=== PATIENT | male | born 1990 | race Native Hawaiian/Other Pacific Islander ===

== ENCOUNTER → 2023-01-23 08:07 | Outpatient (CLI) | payer OTHER, SELFPAY ==
--- NOTE | 2023-01-23 | DI.ECHO.S_ITS ---
[place] +---------+ [facility] +---------+ : : [address] : [address] : : : : [id number] : : : : Phone: [phone]---------+ Echocardiogram Report + + :Name: WINDY HDEZ Study Date: 01/23/2023 Height: 69 in : :[facility] ReadingLocation: Weight: 215 lb : : Gender: Male BSA: 2.1 m2 : :: 1990 Age: 32 yrs BP: 145/103 mmHg: :Reason For Study: PALPITATIONS : :Ordering Physician: ARNEL, : :SANJUANITA Performed By: Susan Yeboah : :Referring: SANJUANITA SEALS : + + Interpretation Summary The ejection fraction is estimated to be 55-60%. Diastolic parameters suggest probable normal left ventricular diastolic function and normal filling pressures. The right ventricle is normal in size and function. No significant valvular abnormalities. Pulmonary artery pressures cannot be estimated because of the lack of a measurable TR jet velocity but the IVC suggests a CVP of around 3 mmHg. Procedure: A two-dimensional transthoracic echocardiogram with color flow and Doppler was performed. The study quality was technically adequate. There is no prior echocardiogram noted for this patient. The patient was in sinus rhythm with heart rates between 59-79 bpm during the exam. Left Ventricle: The left ventricle is normal in size. There is normal left ventricular wall thickness. The ejection fraction is estimated to be 55-60%. Diastolic parameters suggest probable normal left ventricular diastolic function and normal filling pressures. Right Ventricle: The right ventricle is normal in size and function. Atria: The left atrial size is normal. Right atrial size is normal. There is no Doppler evidence for an interatrial shunt. Mitral Valve: The mitral valve is normal in structure and function. There is trace mitral regurgitation. Aortic Valve: The aortic valve is trileaflet. The aortic valve opens well. There is no aortic valve stenosis. No aortic regurgitation is present. Tricuspid Valve: The tricuspid valve is normal in structure and function. There is trace tricuspid regurgitation. Pulmonary artery pressures cannot be estimated because of the lack of a measurable TR jet velocity but the IVC suggests a CVP of around 3 mmHg. Pulmonic Valve: The pulmonic valve leaflets are thin and pliable; valve motion is normal. There is mild pulmonic regurgitation. Great Vessels: The aortic root is normal size. The dimensions of the ascending aorta are normal. The IVC is of normal diameter and collapses greater than 50% with a sniff. This suggests a low right atrial pressure of 3 mm Hg. Pericardium/ Pleura There is no pericardial effusion. There is no pleural effusion. MMode/2D Measurements & Calculations LVIDd: 4.9 cm LVOT diam: 2.5 cm LVIDs: 3.7 cm Ao root diam: 3.5 cm FS: 25.3 % asc Aorta Diam: 3.1 cm EPSS: 0.93 cm IVSd: 1.1 cm LVPWd: 0.94 cm LV wise. diameter/BSA (cm/m^2): 2.3 LV sys. diameter/BSA (cm/m^2): 1.7 LA A2 area: 18.0 cm2 RA long axis: 4.9 cm LA A4 area: 15.6 cm2 RA area: 15.2 cm2 LA length (vol): 4.8 cm RA vol: 39.9 ml LA vol: 50.0 ml RA : 18.7 ml/m2 LA vol index: 23.5 ml/m2 IVC diam: 1.8 cm RVD1 (basal): 4.0 cm TAPSE: 1.7 cm Doppler Measurements & Calculations Ao V2 max: 93.0 cm/sec LVOT Max Nacho: 71.5 cm/sec Ao V2 mean: 67.6 cm/sec LV V1 max P.0 mmHg Ao max P.5 mmHg LV V1 VTI: 15.4 cm Ao mean P.0 mmHg ESSIE(I,D): 3.6 cm2 Ao V2 VTI: 20.8 cm ESSIE(V,D): 3.8 cm2 sev ratio: 0.74 ESSIE indexed to BSA (cm^2/m^2): 1.7 MV E max nacho: 77.7 cm/sec PA V2 max: 80.3 cm/sec MV A max nacho: 59.7 cm/sec PA V2 mean: 60.3 cm/sec MV E/A: 1.3 PA mean P.6 mmHg Med Peak E' Nacho: 8.1 cm/sec PA pr(Accel): 36.2 mmHg E/E' med: 9.6 Lat Peak E' Nacho: 11.7 cm/sec E/E' lat: 6.6 E/e' average: 8.1 MV dec time: 0.18 sec SVLVOT): 75.3 ml Reading Physician:01:10 PM
== END ==
PROVIDERS: Referring Provider Chiropractor; Visit Provider Chiropractor
DX: I37.1 Nonrheumatic pulmonary valve insufficiency (principal); R00.2 Palpitations
CPT/HCPCS: 93005; 93306

== ENCOUNTER → 2023-08-28 10:57 | Outpatient (CLI) | payer OTHER, SELFPAY ==
--- NOTE | 2023-08-28 10:58 | DI.US.S_ITS ---
PROCEDURE: US ABDOMEN LIMITED INDICATIONS: Abnormal results of liver function studies TECHNIQUE: Real-time focused scanning was performed of the abdomen, with image documentation. COMPARISON: None. FINDINGS: The liver demonstrates enlarged size. The liver demonstrates generalized prominently increased echogenicity. This decreases ultrasound sensitivity for detection of hepatic masses. The main portal vein demonstrates normal size and demonstrates normal appearing, hepatopetal flow. Focal fatty sparing can be seen adjacent to the gallbladder. No findings of gallstones or sludge are seen. The gallbladder wall is not thickened, measuring 3 mm or less. No specific pericholecystic fluid is seen. The sonographic Hall sign is negative. There is no biliary dilatation, the common bile duct measures 3 mm. No significant pancreatic abnormality is seen on these images. No free fluid can be seen. IMPRESSION: Enlarged, fatty infiltrated liver. The gallbladder demonstrates a normal sonographic appearance. No biliary dilatation is seen. Dictated by: Severo Hinds M.D. on 08/28/2023 at 11:06 Approved by: Severo Hinds M.D. on 08/28/2023 at 11:07
== END ==
PROVIDERS: Referring Provider Physician Assistant; Visit Provider Physician Assistant
DX: K76.0 Fatty (change of) liver, not elsewhere classified (principal); R94.5 Abnormal results of liver function studies
CPT/HCPCS: 76705